=== PATIENT | male | born 1955 | race African-American/Black ===

== ENCOUNTER 2022-06-04 18:55 | Inpatient (IN) | payer MEDICAID, MEDICARE ==
[~2022-06-04] VITALS: Ht 177.8 cm; Wt 69.4 kg
[~2022-06-04 18:55] MED LIST: CAPE500T15 PO
[2022-06-04] MEDS ORDERED: LISI20TA30 PO (19:45)
[2022-06-04] MEDS ORDERED: HYDR-3972 PO (19:45)
[2022-06-04] MEDS ORDERED: AMLO10TA59 PO (19:45)
[2022-06-04] MEDS ORDERED: GUAI-671 PO (19:45)
[2022-06-04] MEDS ORDERED: TAMS-3 PO (19:45)
[2022-06-04] MEDS ORDERED: DONE5TAB34 PO (19:45)
[2022-06-04] MEDS ORDERED: TRAZ-182 PO (19:45)
[2022-06-04] MEDS ORDERED: FINA5TAB11 PO (19:45)
[2022-06-04] MEDS ORDERED: HALO100A2 IM (19:45)
[2022-06-04] MEDS ORDERED: CLON0.1T PO (19:45)
[2022-06-04] MEDS ORDERED: ONDA-104 PO (19:45)
[2022-06-04] MEDS ORDERED: LORA-259 PO (19:45)
--- NOTE | 2022-06-04 19:50 | NUR ---
PT taken down for CT.
[2022-06-04 19:54] LABS: HEMATOCRIT 35.9 % (36.7-47.1); MEAN CORPUSCULAR HEMOGLOBIN 27.9 uug (23.8-33.4); PLATELET COUNT (AUTO) 135 K/uL (152-348)
[2022-06-04 20:12] LABS: ALANINE AMINOTRANSFERASE 21 U/L (16-63); ALKALINE PHOSPHATASE 68 U/L (50-136); ASPARTATE AMINOTRANSFERASE 29 U/L (15-37); BILIRUBIN,DIRECT 0.1 mg/dL (0.0-0.2); BILIRUBIN,TOTAL 0.4 mg/dL (0.2-1.0); CARBON DIOXIDE 32 mmol/L (21-32); CHLORIDE 108 mmol/L (98-107); GLUCOSE 133 mg/dL (74-106); POTASSIUM 4.2 mmol/L (3.5-5.1); TOTAL PROTEIN, SERUM 7.6 g/dL (6.4-8.2); UREA NITROGEN, BLOOD 22 mg/dL (7-18)
--- NOTE | 2022-06-04 21:00 | NUR ---
Unable to perform In in Out cath d/t strong resistence. Dr. Tapia notified.
[2022-06-04 21:51] LABS: EOSINOPHILS % (MANUAL) 3 % (0-8); LYMPHOCYTES % (MANUAL) 23 % (20-40); MONOCYTES % (MANUAL) 22 % (2-10); NEUTROPHILS % (MANUAL) 52 % (42-75)
--- NOTE | 2022-06-04 22:11 | NUR ---
Meagan cleaning performed (diaper only saturated in urine).
[2022-06-04 22:43] LABS: THYROID STIMULATING HORMONE 2.726 mIU/mL (0.358-3.740)
[2022-06-04] MEDS ORDERED: LACTULOSE 20 G/30 ML LIQUID UDC PO ONE (22:45)
--- NOTE | 2022-06-04 22:50 | NUR ---
Spoke to daughterRachel. Her phone # is Please update her on pt's status if anything changes.
--- NOTE | 2022-06-04 23:00 | NUR ---
Art from Crisis Team contacted for psych eval.
--- NOTE | 2022-06-04 23:05 | NUR ---
I was instructed by ER Physician not to place a condom cath on pt and to wait for crisis team to perform their evaluation.
[2022-06-04] MEDS ORDERED: LACTULOSE 20 G/30 ML LIQUID UDC ONE (23:25)
--- NOTE | 2022-06-05 00:05 | NUR ---
Meagan cleaning performed.
--- NOTE | 2022-06-05 00:14 | NUR ---
Art has arrived.
--- NOTE | 2022-06-05 02:07 | NUR ---
Called for MHU bed, given rm 145 b, and gave report to ALEC Barahona.
--- NOTE | 2022-06-05 02:24 | NUR ---
Meagan cleaning performed.
[2022-06-05] MEDS ORDERED: BLOOD SUGAR DIAGNOSTIC 1 EACH STRIP VI ONE (02:45)
[2022-06-05] MEDS ORDERED: MAGNESIUM HYDROXIDE 30 ML LIQUID UDC PO PRN (02:45)
[2022-06-05] MEDS ORDERED: MAG HYDROX/AL HYDROX/SIMETH 30 ML LIQUID UDC PO PRN (02:45)
--- NOTE | 2022-06-05 02:50 | NUR ---
Pt. admitted to MHU rm 145b, under care of Dr. Rao/Dr. Rios. Belongs List completed ALEC Barahona aware of pt's arrival to unit.
[2022-06-05 03:14] VITALS: BP 158/82
[2022-06-05] MEDS: LORAZEPAM 1 MG TABLET PO PRN ×2 (03:25→19:57)
--- NOTE | 2022-06-05 03:59 | NUR ---
GPS: Admitted to unit earlier a 67 yr.old male under the care of /. Pt.is on a 72 hour hold for GD. Pt.is confused and agitated at his board and care and unable to provide food,residential and clothing ,per hold. Pt.is anxious,disorganized and has poor insight and impaired judgment. Unable to answer questions during admission due to confusion. Pt's rights booklet/advisement placed on bedside table. Unit rules explained. Fall precautions initiated. Ativan 1mg PO given for anxiety.Will monitor effectiveness. Re-directed and re-assured prn.
--- NOTE | 2022-06-05 06:03 | NUR ---
SPOKE WITH RUFINO RN FROM [facility]. HE STATED THAT THE NEW NUMBER FOR HIS FACILITY IS [phone] AND HE CAN ALSO BE REACHED AT [phone] FOR ANY QUESTIONS OR THAT WE CAN ALSO CALL PATIENT'S DAUGHTER JACK, WHO SHE IS THE DECISION MAKER FOR HER FATHER. HE ALSO STARTED THAT HIS CANCER MEDICATION: CAPECITABINE 500MG IS TO BE RESTARTED ON 06/12/22 TO 06/25/22. HE STATED THAT PATIENT MAY NOT BE ABLE TO RETURN TO THIS FACILITY HE MAY NEED A HIGH LEVEL OF CARE. HE ALSO STATED THAT HE WILL CHECK PATIENT'S RECORDS TO FIND OUT HIS IMMUNIZATION STATUS AND WILL CALL BACK AND OBTAINED.
[2022-06-05 07:30] VITALS: BP 158/90
[2022-06-05] MEDS: HALOPERIDOL 5 MG TABLET PO SCH ×2 (12:56→17:34)
[2022-06-05] MEDS: GABAPENTIN 100 MG CAPSULE PO SCH ×2 (12:56→17:34)
--- NOTE | 2022-06-05 15:52 | NUR ---
CLOTON Initial Discharge Note: Pt currently resides at [facility] located at [address] [place], [place] [id number]. No contact number at this time. COLTON will continue to locate contact information to discuss pt's return to the assisted living. COLTON spoke with pt's daughter/DPOA, Rachel ([phone]) who stated she would like pt to return to the assisted living. Rachel, however stated that if the psychiatrist, recommends a higher level of care, she would like to further discuss as she is aware of pt's dementia. COLTON will continue to work with pt, family and MD to ensure a safe and proper discharge plan.
--- NOTE | 2022-06-05 15:53 | NUR ---
COLTON Family/DPOA Contact: COLTON spoke with pt's daughter/DPOA, Rachel ([phone]) who stated she would like pt to return to the assisted living. Rachel, however stated that if the psychiatrist, recommends a higher level of care, she would like to further discuss as she is aware of pt's dementia. COLTON will continue to update Rachel. Rachel was grateful for the call.
--- NOTE | 2022-06-05 15:56 | NUR ---
Firearms Report: Ammonia Distiller completed and submitted a [employer] firearms report for 5150 grave disability certifications. A copy of report has been placed in patient chart.
[2022-06-05 16:00] VITALS: BP 127/75
--- NOTE | 2022-06-05 16:50 | NUR ---
Patient is cooperative, quiet, calm, confused, disoriented, disorganized, compliant with medications. Patient is A/O X 1 -2 to person. Patient is partially blind and only can see shades. Patient has colostomy bag, intact. Relaity orientation provided. Fall and safety precautions implemented.
[2022-06-05] MEDS ORDERED: CLONIDINE HCL 0.1 MG TABLET PO PRN (18:15)
[2022-06-05] MEDS: ACETAMINOPHEN 325 MG TABLET PO PRN (19:58)
[2022-06-05] MEDS: TAMSULOSIN HCL 0.4 MG CAP.SR.24H PO SCH (20:26)
[2022-06-05] MEDS: DONEPEZIL 5 MG TABLET PO SCH (20:26)
[2022-06-05 21:37] VITALS: BP 168/84
[2022-06-05] MEDS: TEMAZEPAM 7.5 MG CAPSULE PO PRN (22:23)
--- NOTE | 2022-06-06 02:32 | NUR ---
Received patient at the start of the shift trying to climb out of bed. Very anxious and demanding. Shouting commands at the staff. The patient was helped to the Kita chair at that time. This patient is confused and forgets that he has a colostomy bag and constantly shouts " I need to shit ". He does not remember that he is in the hospital , despite frequent reorientation. The patient has poor vision and needs assistance with ADL, eating , drinking and taking medications. PRN medications were given with little to no effect. The patient was put back to bed ,but has been periodically been yelling out. Safety Stratiges are in place at this time. Continuing to monitor for aggressive behavior and minimizing unit disruption during the night.
[2022-06-06] MEDS: LORAZEPAM 1 MG TABLET PO PRN ×2 (04:22→20:23)
[2022-06-06] MEDS: ACETAMINOPHEN 325 MG TABLET PO PRN (04:22)
[2022-06-06 08:01] LABS: MEAN CORPUSCULAR HEMOGLOBIN 27.6 uug (23.8-33.4); MEAN CORPUSCULAR VOLUME 84.1 fL (73.0-96.2); PLATELET COUNT (AUTO) 146 K/uL (152-348)
[2022-06-06] MEDS: HALOPERIDOL 5 MG TABLET PO SCH ×3 (08:03→16:44)
[2022-06-06] MEDS: LISINOPRIL 20 MG TABLET PO SCH (08:03)
[2022-06-06] MEDS: GABAPENTIN 100 MG CAPSULE PO SCH ×3 (08:03→16:44)
[2022-06-06] MEDS: AMLODIPINE 10 MG TABLET PO SCH (08:03)
[2022-06-06] MEDS: FINASTERIDE 5 MG TABLET PO SCH (08:03)
[2022-06-06 08:04] VITALS: BP 128/78
[2022-06-06 08:24] LABS: THYROID STIMULATING HORMONE 3.828 mIU/mL (0.358-3.740)
[2022-06-06 08:27] LABS: MAGNESIUM 2.2 mg/dL (1.8-2.4); PHOSPHOROUS 3.4 mg/dL (2.5-4.9); POTASSIUM 3.5 mmol/L (3.5-5.1)
[2022-06-06 09:26] LABS: NEUTROPHILS % (MANUAL) 0 % (42-75)
[2022-06-06 14:35] LABS: *RHEUMATOID FACTOR SCREEN NEGATIVE (NEGATIVE)
[2022-06-06 16:26] VITALS: BP 90/59
[2022-06-06] MEDS: TAMSULOSIN HCL 0.4 MG CAP.SR.24H PO SCH (20:23)
[2022-06-06] MEDS: DONEPEZIL 5 MG TABLET PO SCH (20:23)
[2022-06-06 20:31] VITALS: BP 113/64
[2022-06-06] MEDS: TEMAZEPAM 7.5 MG CAPSULE PO PRN (21:55)
[2022-06-07] MEDS: LORAZEPAM 1 MG TABLET PO PRN ×3 (05:23→23:08)
--- NOTE | 2022-06-07 05:24 | NUR ---
GPS: Pt.slept poorly last night. He was anxious,restless,yelling and frequently trying to get out of bed for no reason. Confused,forgetful and disorganized. Poor insight to present situation. Pt.is at high risk for falls due to poor safety awareness.Constant re-assurance and re-direction provided. Anxiety/insomnia meds.given with little to no effect. Pt.was kept NPO after midnight as ordered. Incontinence care provided. Needs attended. Ativan 1mg PO just given now for increase anxiety. Will continue to monitor. Denies pain at this time.
[2022-06-07 07:51] LABS: HEMATOCRIT 36.4 % (36.7-47.1); MEAN CORPUSCULAR HEMOGLOBIN 27.3 uug (23.8-33.4); PLATELET COUNT (AUTO) 150 K/uL (152-348)
[2022-06-07 07:57] VITALS: BP 118/66
[2022-06-07 08:11] LABS: MAGNESIUM 2.3 mg/dL (1.8-2.4); PHOSPHOROUS 3.8 mg/dL (2.5-4.9); POTASSIUM 3.7 mmol/L (3.5-5.1)
[2022-06-07] MEDS: AMLODIPINE 10 MG TABLET PO SCH (09:13)
[2022-06-07] MEDS: LISINOPRIL 20 MG TABLET PO SCH (09:13)
[2022-06-07] MEDS: FINASTERIDE 5 MG TABLET PO SCH (09:13)
[2022-06-07] MEDS: HALOPERIDOL 5 MG TABLET PO SCH ×4 (09:14→20:52)
[2022-06-07] MEDS: GABAPENTIN 100 MG CAPSULE PO SCH ×3 (09:14→17:26)
[2022-06-07 10:12] LABS: LYMPHOCYTES % (MANUAL) 31 % (20-40); MONOCYTES % (MANUAL) 17 % (2-10); NEUTROPHILS % (MANUAL) 52 % (42-75)
[2022-06-07] MEDS ORDERED: levETIRAcetam 500 MG TABLET PO ONE (10:30)
--- NOTE | 2022-06-07 10:40 | NUR ---
Follow up called to patient's daughter Rachel @[phone] for Chemo. medication (Capecitabine) per patient's daughter she unable to shredder picker the medication now she will try to contact [facility].
[2022-06-07 12:06] LABS: *IMMUNOGLOBULIN G, SERUM 1564 mg/dL (603-1613); IMMUNOGLOBULIN M, SERUM 107 mg/dL (20-172)
[2022-06-07] MEDS: ACETAMINOPHEN 325 MG TABLET PO PRN ×2 (12:22→23:08)
[2022-06-07 16:40] VITALS: BP 117/60
[2022-06-07 20:07] VITALS: BP 111/59
[2022-06-07] MEDS: FERROUS SULFATE 325 MG TABEC PO SCH (20:52)
[2022-06-07] MEDS: TAMSULOSIN HCL 0.4 MG CAP.SR.24H PO SCH (20:52)
[2022-06-07] MEDS: DONEPEZIL 5 MG TABLET PO SCH (20:52)
[2022-06-08] MEDS: GUAIFENESIN/DEXTROMETHORPHAN 5 ML UDC PO PRN (05:55)
[2022-06-08] MEDS: ACETAMINOPHEN 325 MG TABLET PO PRN ×2 (05:55→21:02)
[2022-06-08] MEDS: LORAZEPAM 1 MG TABLET PO PRN ×3 (05:55→21:01)
--- NOTE | 2022-06-08 06:20 | NUR ---
TEXT DR. HWANG FOR MRI APPROVAL.
[2022-06-08 08:10] VITALS: BP 93/56
[2022-06-08 08:27] LABS: HEMATOCRIT 33.2 % (36.7-47.1); PLATELET COUNT (AUTO) 120 K/uL (152-348)
[2022-06-08] MEDS: GABAPENTIN 100 MG CAPSULE PO SCH ×3 (08:54→17:27)
[2022-06-08] MEDS: FINASTERIDE 5 MG TABLET PO SCH (08:54)
[2022-06-08] MEDS: HALOPERIDOL 5 MG TABLET PO SCH ×4 (08:54→21:01)
[2022-06-08] MEDS: FERROUS SULFATE 325 MG TABEC PO SCH ×2 (08:55→21:01)
[2022-06-08] MEDS: AMLODIPINE 10 MG TABLET PO SCH (08:56)
[2022-06-08] MEDS: LISINOPRIL 20 MG TABLET PO SCH (08:56)
[2022-06-08] MEDS: GLUCERNA SHAKE 237 ML CAN PO SCH (08:57)
[2022-06-08 09:06] LABS: *ANTI-SCLERODERMA-70 AB <0.2 AI (0.0-0.9); *SJOGREN'S ANTI-SS-B <0.2 AI (0.0-0.9); *SMITH ANTIBODIES <0.2 AI (0.0-0.9); ANTI-DNA(DS) AB, QN 1 IU/mL (0-9)
[2022-06-08 10:06] LABS: *SJOGREN'S ANTI-SS-A <0.2 AI (0.0-0.9)
[2022-06-08] MEDS: DIVALPROEX 250 MG TABLET.DR PO SCH ×2 (12:53→17:27)
[2022-06-08 14:52] LABS: NEUTROPHILS % (MANUAL) 0 % (42-75)
--- NOTE | 2022-06-08 15:46 | NUR ---
MRI schedule tomorrow at 10 am, ambulance arranged mixing picker tender time @ 9AM , supervisor rocket propellant plant Mayelin notified. MRI consent given by daughter over the phone .
--- NOTE | 2022-06-08 15:52 | NUR ---
COLTON Family/DPOA Contact: COLTON spoke with pt's daughter/DPOA, Rachel ([phone]) who provided this SW with pt's assisted living loom fixer helper, Alvaro's contact information ([phone]). Rachel stated she would like to discharge the pt to a dementia care longterm facility upon discharge if pt cannot return to the assisted living. Rachel requested facilities in [facility]. COLTON stated she will work with the psychiatrist to ensure a safe and proper discharge plan for the pt.
--- NOTE | 2022-06-08 15:58 | NUR ---
SW Discharge Update: SW contacted pt's assisted living class 1 owner operator, Alvaro ([phone]) called [facility] located at [address] [place] [address] and left a voicemail for a call back. Pt's daughter, Rachel provided the information to the SW when this health technical writer informed Rachel the facility has not been answering.
--- NOTE | 2022-06-08 16:09 | NUR ---
COLTON Discharge Update: COLTON spoke with pt's assisted living lpn rn, Alvaro ([phone]) called [facility] located at [address] [place] [address] who stated pt cannot return to their assisted living because they are not a locked unit. Alvaro stated pt is an elopement risk. Alvaro stated he will send the pt's belongings wherever the pt discharges to from [place]. COLTON stated this typewriter tester will inform Rachel.
[2022-06-08 16:10] VITALS: BP 111/60
--- NOTE | 2022-06-08 16:14 | NUR ---
Received Capecitabine ( Chemo.medication) delivery from patient's assisted living ,sent to our pharmacy.
[2022-06-08 19:50] VITALS: BP 129/59
[2022-06-08] MEDS ORDERED: levETIRAcetam 500 MG TABLET PO SCH (21:00)
[2022-06-08] MEDS: DONEPEZIL 5 MG TABLET PO SCH (21:01)
[2022-06-08] MEDS: TAMSULOSIN HCL 0.4 MG CAP.SR.24H PO SCH (21:01)
[2022-06-08] MEDS: TEMAZEPAM 7.5 MG CAPSULE PO PRN (22:25)
[2022-06-09 03:07] LABS: HEPATITIS B SURFACE AG Negative (Negative)
[2022-06-09 05:06] LABS: A/G RATIO 0.9 (0.7-1.7); ALBUMIN 3.5 g/dL (2.9-4.4); ALPHA-1-GLOBULIN 0.3 g/dL (0.0-0.4); ALPHA-2-GLOBULIN 0.8 g/dL (0.4-1.0); BETA GLOBULIN 1.3 g/dL (0.7-1.3); GAMMA GLOBULIN 1.5 g/dL (0.4-1.8); GLOBULIN, TOTAL 3.9 g/dL (2.2-3.9); M-SPIKE Not Observed g/dL (Not Observed)
[2022-06-09] MEDS: LORAZEPAM 1 MG TABLET PO PRN ×3 (07:25→21:20)
[2022-06-09] MEDS: ACETAMINOPHEN 325 MG TABLET PO PRN ×3 (07:26→22:31)
[2022-06-09 08:00] VITALS: BP 117/61
[2022-06-09] MEDS: HALOPERIDOL 5 MG TABLET PO SCH ×4 (08:24→21:20)
[2022-06-09] MEDS: FINASTERIDE 5 MG TABLET PO SCH (08:24)
[2022-06-09] MEDS: DIVALPROEX 250 MG TABLET.DR PO SCH ×3 (08:24→17:10)
[2022-06-09] MEDS: FERROUS SULFATE 325 MG TABEC PO SCH ×2 (08:28→21:20)
[2022-06-09] MEDS: GABAPENTIN 100 MG CAPSULE PO SCH ×3 (08:28→17:10)
[2022-06-09] MEDS: AMLODIPINE 10 MG TABLET PO SCH (08:29)
[2022-06-09] MEDS: LISINOPRIL 20 MG TABLET PO SCH (08:30)
[2022-06-09] MEDS: GLUCERNA SHAKE 237 ML CAN PO SCH (08:30)
[2022-06-09] MEDS ORDERED: GADOTERATE MEGLUMINE 10 MMOL/20 ML VIAL IV ONE (12:41)
--- NOTE | 2022-06-09 15:27 | NUR ---
Received patient awake in the hallway. Patient is A/O X 2 to person. Patient is cooperative with nursing care, compliant with medications, confused and disoriented at times, anxious, labile. Patient is given Ativan 1 mg at 13:49, effective. Patient is given Tylenol 650 mg for lower back pain at 13:50, effective. Patient went to [place] [facility] for MRI at 10:00 am, exam was done. Requires more than minimal assistance with ADL. Colostomy bag is changed or empty in every shift. Reassurance given. Fall and safety precautions implemented.
[2022-06-09 16:05] VITALS: BP 114/48
[2022-06-09 20:02] VITALS: BP 119/58
[2022-06-09] MEDS: TAMSULOSIN HCL 0.4 MG CAP.SR.24H PO SCH (21:20)
[2022-06-09] MEDS: DONEPEZIL 5 MG TABLET PO SCH (21:20)
[2022-06-09] MEDS: TEMAZEPAM 7.5 MG CAPSULE PO PRN (22:31)
[2022-06-10] MEDS: GUAIFENESIN/DEXTROMETHORPHAN 5 ML UDC PO PRN ×2 (02:23→16:29)
--- NOTE | 2022-06-10 02:44 | NUR ---
Pt presents with intermittent cough. At times pt is able to expectorate yellow phlegm. Guaifenesin given around 0220 hours. Mediation was effective. Will continue to monitor.
[2022-06-10 07:30] VITALS: BP 112/59
[2022-06-10 07:41] LABS: HEMATOCRIT 35.5 % (36.7-47.1); MEAN CORPUSCULAR HEMOGLOBIN 27.7 uug (23.8-33.4); MEAN CORPUSCULAR VOLUME 86.7 fL (73.0-96.2); PLATELET COUNT (AUTO) 152 K/uL (152-348)
[2022-06-10 08:28] LABS: NEUTROPHILS % (MANUAL) 0 % (42-75)
[2022-06-10] MEDS: GABAPENTIN 100 MG CAPSULE PO SCH ×3 (08:31→16:26)
[2022-06-10] MEDS: DIVALPROEX 250 MG TABLET.DR PO SCH ×3 (08:32→16:26)
[2022-06-10] MEDS: HALOPERIDOL 5 MG TABLET PO SCH ×4 (08:32→20:18)
[2022-06-10] MEDS: FERROUS SULFATE 325 MG TABEC PO SCH ×2 (08:32→20:18)
[2022-06-10] MEDS: FINASTERIDE 5 MG TABLET PO SCH (08:32)
[2022-06-10] MEDS: GLUCERNA SHAKE 237 ML CAN PO SCH (08:33)
[2022-06-10] MEDS: AMLODIPINE 10 MG TABLET PO SCH (08:34)
[2022-06-10] MEDS: LISINOPRIL 20 MG TABLET PO SCH (08:36)
--- NOTE | 2022-06-10 15:03 | NUR ---
Received patient awake in the hallway. Patient is A/O X 1- 2 to person. Patient is compliant with medications, confused, disoriented, disorganized, anxious. Patient is having a productive coughing, Purler was informed and prescribed Guaifenesin 600 mg PO q12hr PRN, Procalcitonin, and Covid test. Patient requires total care. Colostomy bag emptied in this morning. Reality orientation provided. Fall and safety precautions implemented.
[2022-06-10 16:00] VITALS: BP 113/63
[2022-06-10] MEDS: GUAIFENESIN LA 600 MG TABLET.SA PO PRN (16:26)
--- NOTE | 2022-06-10 18:48 | NUR ---
Patient had court hearing today, and cash management clerk gave 14 Day probable cause for GD only.
[2022-06-10 20:18] VITALS: BP 125/58
[2022-06-10] MEDS: TAMSULOSIN HCL 0.4 MG CAP.SR.24H PO SCH (20:18)
[2022-06-10] MEDS: DONEPEZIL 5 MG TABLET PO SCH (20:18)
[2022-06-10] MEDS: TEMAZEPAM 7.5 MG CAPSULE PO PRN (22:53)
[2022-06-11] MEDS: GUAIFENESIN/DEXTROMETHORPHAN 5 ML UDC PO PRN ×2 (06:12→20:22)
[2022-06-11] MEDS: GUAIFENESIN LA 600 MG TABLET.SA PO PRN (06:12)
--- NOTE | 2022-06-11 06:35 | NUR ---
GPS: Pt.slept for 6 hrs. last night. Remains confused,disoriented and disorganized. Has productive cough. Cough syrup and Mucinex given as ordered. Remains afebrile. Denies SOB. Re-directed prn. No combative behavior noted.
[2022-06-11 07:30] VITALS: BP 106/59
[2022-06-11] MEDS: AMLODIPINE 10 MG TABLET PO SCH (09:00)
[2022-06-11] MEDS: LISINOPRIL 20 MG TABLET PO SCH (09:00)
[2022-06-11] MEDS: HALOPERIDOL 5 MG TABLET PO SCH ×4 (09:04→20:19)
[2022-06-11] MEDS: FERROUS SULFATE 325 MG TABEC PO SCH ×2 (09:05→20:19)
[2022-06-11] MEDS: FINASTERIDE 5 MG TABLET PO SCH (09:05)
[2022-06-11] MEDS: DIVALPROEX 250 MG TABLET.DR PO SCH ×3 (09:05→16:41)
[2022-06-11] MEDS: GABAPENTIN 100 MG CAPSULE PO SCH ×3 (09:05→16:41)
[2022-06-11] MEDS: GLUCERNA SHAKE 237 ML CAN PO SCH (09:06)
--- NOTE | 2022-06-11 11:08 | NUR ---
SNF Referral: SW faxed patient's referral packet including: History and Physical, Consultation, Progress Notes, Medication List and Labs to the following facilities for review and possible group home placement: [facility] located at [address] [address] ([phone]). COLTON spoke with Collin hidalgo.
--- NOTE | 2022-06-11 11:22 | NUR ---
Pharmacy informed that patient restarts Cancer treatment tomorrow 06/12/22 until 06/25/22, 14 days of treatment, but Alvaro MICHAEL ([phone]) from [facility] brought 16 pills which covers 2 days supply only. Patient takes 4 pills of 500 mg BID, patient's daughter Rachel ([phone]) was informed and will verify if she has any pills left at home. Psychiatrist requested Chemo consult from Dr. Bry Armas STAT.
--- NOTE | 2022-06-11 11:37 | NUR ---
COLTON Family/DPOA Contact: COLTON spoke with pt's daughter/DPOA, Rachel ([phone]) and informed her that the Pharmacy informed nursing that the pt's Cancer treatment Capecitabine 500mg restarts tomorrow 06/12/22 until 06/25/22, 14 days of treatment. Rachel informed this marketing underwriter that Alvaro MICHAEL ([phone]) from [facility] brought the medication. The pharmacy informed nursing that there is only 16 pills which covers 2 days supply only. Patient takes 4 pills of 500 mg BID. COLTON informed pt's daughter Rachel ([phone]) who stated she will confirm if she has additional pills of Capecitabine 500mg at home t provide the hospital with. Psychiatrist, Dr. Rao requested Chemo consult from Dr. Bry Armas STAT. Rachel was grateful for the update and stated she will contact this marketing underwriter to inform her on the discharge transportation details and medication.
--- NOTE | 2022-06-11 14:47 | NUR ---
COLTON Family/DPOA Contact: COLTON spoke with pt's daughter/DPOA, Rachel ([phone]) and informed her that the pt is accepted to [facility] in [place] per request. Rachel stated that if the facility is not able to provide transportation, she will help with transportation. COLTON stated that pt has an accepting facility locally as well for a safe discharge via ambulance as a temporary and alternative option. Rachel stated she will help with transportation as she wants to move forward with [facility].
--- NOTE | 2022-06-11 15:15 | NUR ---
Received patient sleeping in his room. A/O X 1 to person. Patient is confused, disoriented, disorganized, forgetful, cooperative with nursing care, and compliant with medications. Patient requires total care. Reassurance given. Fall and safety precautions implemented.
[2022-06-11 16:00] VITALS: BP 97/61
[2022-06-11 20:12] VITALS: BP 103/57
[2022-06-11] MEDS: DONEPEZIL 5 MG TABLET PO SCH (20:19)
[2022-06-11] MEDS: TAMSULOSIN HCL 0.4 MG CAP.SR.24H PO SCH (20:19)
[2022-06-11] MEDS: TEMAZEPAM 7.5 MG CAPSULE PO PRN (21:41)
[2022-06-12] MEDS: LORAZEPAM 1 MG TABLET PO PRN ×2 (00:04→08:46)
[2022-06-12 07:30] VITALS: BP 104/61
[2022-06-12] MEDS: FERROUS SULFATE 325 MG TABEC PO SCH ×2 (08:45→20:19)
[2022-06-12] MEDS: HALOPERIDOL 5 MG TABLET PO SCH ×4 (08:46→20:19)
[2022-06-12] MEDS: GABAPENTIN 100 MG CAPSULE PO SCH ×3 (08:46→17:21)
[2022-06-12] MEDS: FINASTERIDE 5 MG TABLET PO SCH (08:46)
[2022-06-12] MEDS: DIVALPROEX 250 MG TABLET.DR PO SCH ×3 (08:46→17:20)
[2022-06-12] MEDS: GLUCERNA SHAKE 237 ML CAN PO SCH (08:47)
[2022-06-12] MEDS: LISINOPRIL 20 MG TABLET PO SCH (08:49)
[2022-06-12] MEDS: AMLODIPINE 10 MG TABLET PO SCH (08:49)
[2022-06-12] MEDS ORDERED: CAPECITABINE 2000 MG PO SCH (09:00)
--- NOTE | 2022-06-12 14:23 | NUR ---
Discharge Update: Per conversation with pt's daughter, Rachel, pt will temporarily discharge to [facility] [phone]) [address] [place] [address] where pt is accepted to upon discharge. Pt will transfer from [facility] to [facility] in [place] in a couple weeks where pt is accepted to by Rachel's transportation for continuation of care. Rachel is aware and agreeable with the discharge plan.
[2022-06-12 16:00] VITALS: BP 133/71
[2022-06-12] MEDS: DONEPEZIL 5 MG TABLET PO SCH (20:19)
[2022-06-12] MEDS: GUAIFENESIN/DEXTROMETHORPHAN 5 ML UDC PO PRN (20:21)
[2022-06-12] MEDS: TAMSULOSIN HCL 0.4 MG CAP.SR.24H PO SCH (20:21)
[2022-06-12] MEDS: REMEDY ESSENTIAL ZINC PASTE 113 GM TOP PRN (20:47)
[2022-06-12 21:06] VITALS: BP 122/50
[2022-06-12] MEDS: TEMAZEPAM 7.5 MG CAPSULE PO PRN (21:39)
[2022-06-13] MEDS: FINASTERIDE 5 MG TABLET PO SCH (08:23)
[2022-06-13] MEDS: GABAPENTIN 100 MG CAPSULE PO SCH ×3 (08:23→16:56)
[2022-06-13] MEDS: DIVALPROEX 250 MG TABLET.DR PO SCH ×3 (08:24→16:55)
[2022-06-13] MEDS: HALOPERIDOL 5 MG TABLET PO SCH ×3 (08:24→20:27)
[2022-06-13] MEDS: AMLODIPINE 10 MG TABLET PO SCH (08:25)
[2022-06-13] MEDS: LISINOPRIL 20 MG TABLET PO SCH (08:25)
[2022-06-13] MEDS: GLUCERNA SHAKE 237 ML CAN PO SCH (08:28)
[2022-06-13] MEDS: FERROUS SULFATE 325 MG TABEC PO SCH ×2 (08:28→20:27)
--- NOTE | 2022-06-13 15:19 | NUR ---
Patient is alert and oriented x1 to himself Med.compliant Confused,disoriented. Reality re-orientation provided prn. Fall precautions observed. Denies pain or discomfort when asked. Colostomy care done prn.
[2022-06-13 16:09] VITALS: BP 141/59
[2022-06-13 20:25] VITALS: BP 112/60
[2022-06-13] MEDS: DONEPEZIL 5 MG TABLET PO SCH (20:27)
[2022-06-13] MEDS: LORAZEPAM 0.5 MG TABLET PO PRN (20:27)
[2022-06-13] MEDS: TAMSULOSIN HCL 0.4 MG CAP.SR.24H PO SCH (20:27)
[2022-06-14] MEDS: GUAIFENESIN/DEXTROMETHORPHAN 5 ML UDC PO PRN (01:24)
[2022-06-14] MEDS: TEMAZEPAM 7.5 MG CAPSULE PO PRN (01:25)
--- NOTE | 2022-06-14 04:55 | NUR ---
Pt is unsteady with gait and balance. Fall risk. Emptied colostomy bag 3 times this shift. Cleansed and changed diapers x3 this shift. Liquid stool was black to dark brown in color. Pt has occasional productive cough with white to yellow frothy sputum, with minimal to moderate amount. Gave Guaifenesin. Will continue to monitor.
[2022-06-14 08:21] VITALS: BP 98/59
[2022-06-14] MEDS: LISINOPRIL 20 MG TABLET PO SCH (09:00)
[2022-06-14] MEDS: FERROUS SULFATE 325 MG TABEC PO SCH ×2 (09:21→20:54)
[2022-06-14] MEDS: DIVALPROEX 250 MG TABLET.DR PO SCH ×3 (09:21→16:55)
[2022-06-14] MEDS: FINASTERIDE 5 MG TABLET PO SCH (09:21)
[2022-06-14] MEDS: GABAPENTIN 100 MG CAPSULE PO SCH ×3 (09:21→16:55)
[2022-06-14] MEDS: HALOPERIDOL 5 MG TABLET PO SCH ×3 (09:22→20:54)
[2022-06-14] MEDS: AMLODIPINE 10 MG TABLET PO SCH (09:22)
[2022-06-14] MEDS: GLUCERNA SHAKE 237 ML CAN PO SCH (09:23)
--- NOTE | 2022-06-14 14:38 | NUR ---
Received patient sleeping in his room. Patient is A/O X 1 -2 to person. Patient is disoriented, forgetful, disorganized, compliant with medications, cooperative with nursing care, following directions. Patient requires total assistance, incontinent, feeder, ambulates with assistance of Physical Therapy. Reality orientation provided. Fall and safety precautions implemented.
[2022-06-14 16:17] VITALS: BP 112/61
[2022-06-14 19:57] VITALS: BP 115/60
[2022-06-14] MEDS: DONEPEZIL 5 MG TABLET PO SCH (20:54)
[2022-06-14] MEDS: ACETAMINOPHEN 325 MG TABLET PO PRN (20:54)
[2022-06-14] MEDS: TAMSULOSIN HCL 0.4 MG CAP.SR.24H PO SCH (20:54)
[2022-06-14] MEDS: LORAZEPAM 0.5 MG TABLET PO PRN (20:54)
[2022-06-15] MEDS: TEMAZEPAM 7.5 MG CAPSULE PO PRN ×2 (00:38→22:54)
[2022-06-15] MEDS: ACETAMINOPHEN 325 MG TABLET PO PRN (02:18)
[2022-06-15] MEDS: GUAIFENESIN/DEXTROMETHORPHAN 5 ML UDC PO PRN ×2 (02:18→22:54)
[2022-06-15] MEDS: LORAZEPAM 0.5 MG TABLET PO PRN (02:19)
--- NOTE | 2022-06-15 04:29 | NUR ---
Emptied pt's colostomy bag x3 times this shift, with the 3rd time being almost completely water, and very little stool. Stool has the obvious black color possibly d/t daily iron supplementation or melena. Stoma still has beefy red coloration. Pt is still overall compliant with POC, yet still experiences AH and VH, disoriented, disorganized, maloderous, and difficult to redirect. Provided prn suctioning d/t intermittent productive cough via [place]. Collected clear to yellow frothy sputum. Pt tolerated procedure well.
--- NOTE | 2022-06-15 06:25 | NUR ---
While initiating oral care in the morning of this shift, this nurse allowed patient to brush his own teeth. Patient performed task well with minimal assistance.
[2022-06-15 07:52] VITALS: BP 135/64
[2022-06-15 08:51] LABS: HEMATOCRIT 35.2 % (36.7-47.1); MEAN CORPUSCULAR HEMOGLOBIN 28.2 uug (23.8-33.4); MEAN CORPUSCULAR VOLUME 85.7 fL (73.0-96.2); PLATELET COUNT (AUTO) 183 K/uL (152-348)
[2022-06-15] MEDS: FERROUS SULFATE 325 MG TABEC PO SCH ×2 (09:13→20:49)
[2022-06-15] MEDS: DIVALPROEX 250 MG TABLET.DR PO SCH ×3 (09:13→17:51)
[2022-06-15] MEDS: FINASTERIDE 5 MG TABLET PO SCH (09:13)
[2022-06-15] MEDS: AMLODIPINE 10 MG TABLET PO SCH (09:14)
[2022-06-15] MEDS: HALOPERIDOL 5 MG TABLET PO SCH ×3 (09:14→20:49)
[2022-06-15] MEDS: LISINOPRIL 20 MG TABLET PO SCH (09:14)
[2022-06-15] MEDS: GABAPENTIN 100 MG CAPSULE PO SCH ×3 (09:15→17:51)
[2022-06-15] MEDS: GLUCERNA SHAKE 237 ML CAN PO SCH (09:15)
[2022-06-15 11:05] LABS: BILIRUBIN,TOTAL 0.6 mg/dL (0.2-1.0); MAGNESIUM 2.1 mg/dL (1.8-2.4); PHOSPHOROUS 3.6 mg/dL (2.5-4.9); POTASSIUM 3.9 mmol/L (3.5-5.1); TOTAL PROTEIN, SERUM 7.9 g/dL (6.4-8.2)
[2022-06-15 16:10] VITALS: BP 106/62
[2022-06-15 16:16] LABS: BAND % (MANUAL) 2 % (0-10); NEUTROPHILS % (MANUAL) 60 % (42-75)
[2022-06-15 16:17] LABS: EOSINOPHILS % (MANUAL) 2 % (0-8); LYMPHOCYTES % (MANUAL) 24 % (20-40); MONOCYTES % (MANUAL) 12 % (2-10)
--- NOTE | 2022-06-15 18:24 | NUR ---
Received patient in hallway he is alert and oriented x1 to himself Med.compliant Confused,disoriented. Reality re-orientation provided prn. Fall precautions observed. Denies pain or discomfort when asked. assisted patient ambulates to restroom Colostomy care done prn.
[2022-06-15 20:14] VITALS: BP 127/72
[2022-06-15] MEDS: DONEPEZIL 5 MG TABLET PO SCH (20:48)
[2022-06-15] MEDS: TAMSULOSIN HCL 0.4 MG CAP.SR.24H PO SCH (20:49)
[2022-06-15] MEDS: REMEDY ESSENTIAL ZINC PASTE 113 GM TOP PRN (21:19)
[2022-06-16 07:29] VITALS: BP 100/69
[2022-06-16] MEDS: DIVALPROEX 250 MG TABLET.DR PO SCH ×3 (08:16→16:31)
[2022-06-16] MEDS: FINASTERIDE 5 MG TABLET PO SCH (08:16)
[2022-06-16] MEDS: HALOPERIDOL 5 MG TABLET PO SCH ×3 (08:17→21:05)
[2022-06-16] MEDS: FERROUS SULFATE 325 MG TABEC PO SCH ×2 (08:17→21:07)
[2022-06-16] MEDS: GLUCERNA SHAKE 237 ML CAN PO SCH (08:18)
[2022-06-16] MEDS: GABAPENTIN 100 MG CAPSULE PO SCH ×3 (08:18→16:33)
[2022-06-16] MEDS: AMLODIPINE 10 MG TABLET PO SCH (08:19)
[2022-06-16] MEDS: LISINOPRIL 20 MG TABLET PO SCH (08:19)
[2022-06-16] MEDS: LORAZEPAM 0.5 MG TABLET PO PRN ×2 (10:50→21:05)
[2022-06-16 11:30] LABS: HEMATOCRIT 37.5 % (36.7-47.1); MEAN CORPUSCULAR HEMOGLOBIN 27.6 uug (23.8-33.4); PLATELET COUNT (AUTO) 212 K/uL (152-348)
[2022-06-16 11:48] LABS: BILIRUBIN,TOTAL 0.6 mg/dL (0.2-1.0); CREATININE 0.9 mg/dL (0.6-1.3); POTASSIUM 3.9 mmol/L (3.5-5.1); TOTAL PROTEIN, SERUM 8.1 g/dL (6.4-8.2)
--- NOTE | 2022-06-16 14:17 | NUR ---
ANJANA Family/DPOA Contact: ANJANA contacted pt's daughter/DPOA, Rachel ([phone]) and left a voicemail informing Rachel of pts' discharge to [facility] ([phone]) [address] [place] [address] via Ambulance transportation on 06/18/22. ANJANA stated [facility] and [facility] in [place] are aware of pt's temporary placement at [facility] prior to pt discharging to [place]. Anjana provided [facility] with [facility] [employer] salesperson, George ([phone]) for discharge assistance.
[2022-06-16 15:45] VITALS: BP 131/70
[2022-06-16] MEDS: AMOXICILLIN-CLAVUL 875-125MG TABLET PO SCH ×2 (16:32→21:05)
[2022-06-16] MEDS: DOXYCYCLINE HYCLATE 100 MG TABLET PO SCH ×2 (16:32→21:06)
--- NOTE | 2022-06-16 17:45 | NUR ---
patient seen by Oncologist LO Frias ,not going to start Chemo. medication will follow up with oncologist within 1 week after discharged.
[2022-06-16 20:56] VITALS: BP 126/69
[2022-06-16] MEDS: TAMSULOSIN HCL 0.4 MG CAP.SR.24H PO SCH (21:05)
[2022-06-16] MEDS: DONEPEZIL 5 MG TABLET PO SCH (21:05)
[2022-06-16] MEDS: GUAIFENESIN/DEXTROMETHORPHAN TAB.SR.12H PO SCH (21:06)
[2022-06-16] MEDS: TEMAZEPAM 7.5 MG CAPSULE PO PRN (23:07)
[2022-06-16] MEDS: ACETAMINOPHEN 325 MG TABLET PO PRN (23:08)
[2022-06-17] MEDS: LORAZEPAM 0.5 MG TABLET PO PRN ×2 (06:44→21:08)
[2022-06-17 07:30] VITALS: BP 155/77
[2022-06-17] MEDS: HALOPERIDOL 5 MG TABLET PO SCH ×3 (08:31→21:09)
[2022-06-17] MEDS: FERROUS SULFATE 325 MG TABEC PO SCH ×2 (08:32→21:09)
[2022-06-17] MEDS: DIVALPROEX 250 MG TABLET.DR PO SCH ×3 (08:32→17:11)
[2022-06-17] MEDS: AMOXICILLIN-CLAVUL 875-125MG TABLET PO SCH ×2 (08:32→21:08)
[2022-06-17] MEDS: GABAPENTIN 100 MG CAPSULE PO SCH ×3 (08:33→17:12)
[2022-06-17] MEDS: GUAIFENESIN/DEXTROMETHORPHAN TAB.SR.12H PO SCH ×2 (08:33→21:09)
[2022-06-17] MEDS: AMLODIPINE 10 MG TABLET PO SCH (08:33)
[2022-06-17] MEDS: DOXYCYCLINE HYCLATE 100 MG TABLET PO SCH ×2 (08:34→21:08)
[2022-06-17] MEDS: FINASTERIDE 5 MG TABLET PO SCH (08:34)
[2022-06-17] MEDS: LISINOPRIL 20 MG TABLET PO SCH (08:34)
[2022-06-17] MEDS: GLUCERNA SHAKE 237 ML CAN PO SCH (08:43)
--- NOTE | 2022-06-17 15:37 | NUR ---
COLTON discharge Update: COLTON contacted pt's daughter/DPOARachel ([phone]) and discussed pt's final discharge plan to [facility] ([phone]) located at [address] [place] [address] via Ambulance transportation on 06/18/22. Nuzhat from [facility] is aware of pt's temporary admission for continuation of care. Nuzhat is aware pt's daughterRachel is transferring the pt [facility] in [place] where pt is accepted per George hidalgo ([phone]). Nuzhat stated to this junior underwriter that she will inform [facility] team of pt's continuation of care plan to [facility] by Rachel's transportation. George stated to this junior underwriter that [facility] will need to contact George prior to pt's transfer from [facility] to [facility]. Nuzhat and Rachel are aware and agreeable with this plan. COLTON informed Rachel that this junior underwriter spoke to Nuzhat at [facility] and George at [facility] in [place] who are aware of the pt's final discharge plan. COLTON provided [facility] with George Ring ([phone]) for continuation of care communication.
[2022-06-17 16:00] VITALS: BP 105/57
--- NOTE | 2022-06-17 19:22 | NUR ---
Pt has been out of bed, and resting in patience-chair. Pt allows care. Pt need assistance with all activities. Pt's colostomy was emptied, site is cleaned. Pt is resting in bed.
[2022-06-17] MEDS: TAMSULOSIN HCL 0.4 MG CAP.SR.24H PO SCH (21:08)
[2022-06-17] MEDS: DONEPEZIL 5 MG TABLET PO SCH (21:08)
[2022-06-17 21:24] VITALS: BP 94/58
[2022-06-18 07:30] VITALS: BP 104/59
--- NOTE | 2022-06-18 09:40 | NUR ---
COLTON Discharge Note: Pt will be discharged to [facility] ([phone]) located at [address] [place] [address] via Ambulance transportation at 11AM. COLTON spoke with Nuzhat hidalgo and Ameena at the facility who states they are ready to accept the patient today. Pt is aware and agreeable with discharge plan. Pts daughter/DPOA, Rachel ([phone]) is aware and agreeable with the discharge plan. Pt is alert and oriented x2, is unable to plan for self-care at this time. However, pt is willing to accept care at SNF. Pt denies any suicidal or homicidal ideation. Pt will follow-up at the facility with Psychiatrist, Dr. Rao ([phone]) and Blast Setter, Katty. Pt presents with calm mood and congruent affect. PHARMACY: [facility] [phone]) [address] [address].
[2022-06-18] MEDS: DIVALPROEX 250 MG TABLET.DR PO SCH (09:45)
[2022-06-18] MEDS: GABAPENTIN 100 MG CAPSULE PO SCH (09:45)
[2022-06-18] MEDS: FINASTERIDE 5 MG TABLET PO SCH (09:45)
[2022-06-18] MEDS: FERROUS SULFATE 325 MG TABEC PO SCH (09:45)
[2022-06-18] MEDS: AMOXICILLIN-CLAVUL 875-125MG TABLET PO SCH (09:46)
[2022-06-18] MEDS: LISINOPRIL 20 MG TABLET PO SCH (09:46)
[2022-06-18] MEDS: DOXYCYCLINE HYCLATE 100 MG TABLET PO SCH (09:46)
[2022-06-18] MEDS: GLUCERNA SHAKE 237 ML CAN PO SCH (09:48)
[2022-06-18] MEDS: GUAIFENESIN/DEXTROMETHORPHAN TAB.SR.12H PO SCH (09:55)
[2022-06-18] MEDS: HALOPERIDOL 5 MG TABLET PO SCH (10:27)
[2022-06-18 11:03] VITALS: BP 134/67
[2022-06-18] MEDS: AMLODIPINE 10 MG TABLET PO SCH (11:03)
--- NOTE | 2022-06-18 11:03 | NUR ---
Gps/Carton Maker- Called [facility], for report, spoked with Jeanine(Nurse) will return call for confirmation on admission at the SNF
[2022-06-18 11:35] LABS: HEMATOCRIT 35.7 % (36.7-47.1); MEAN CORPUSCULAR HEMOGLOBIN 28.2 uug (23.8-33.4); MEAN CORPUSCULAR VOLUME 87.7 fL (73.0-96.2); PLATELET COUNT (AUTO) 185 K/uL (152-348)
--- NOTE | 2022-06-18 11:35 | NUR ---
Gps/Fire Production Operator Called [facility], report was given to Jeanine , coal picker time was arranged at 1130 -1200 pending availability
--- NOTE | 2022-06-18 12:47 | NUR ---
Gps/Career Placement Services Counselor- Discharged to [facility] via ambulance, no belongings noted , except patient's own meds. Patient was well informed of his discharged plan. No sigh of any distress.
[2022-06-18 13:02] LABS: NEUTROPHILS % (MANUAL) 0 % (42-75)
== END 2022-06-18 12:45 | DRG 885 ==
LOC: ER 18:55 → GPS 06-05 01:30
PROVIDERS: ADMIT Psychiatry & Neurology Psychosomatic Medicine; ATTEND Nurse Practitioner Acute Care
DX: F29 Unspecified psychosis not due to a substance or known physiological condition (principal); F01.52 Vascular dementia, unspecified severity, with psychotic disturbance; Z93.3 Colostomy status; G93.41 Metabolic encephalopathy; I62.03 Nontraumatic chronic subdural hemorrhage; E87.1 Hypo-osmolality and hyponatremia; D61.818 Other pancytopenia; E72.20 Disorder of urea cycle metabolism, unspecified; F31.9 Bipolar disorder, unspecified; D69.6 Thrombocytopenia, unspecified; D72.821 Monocytosis (symptomatic); E86.0 Dehydration; I10 Essential (primary) hypertension; Z86.73 Personal history of transient ischemic attack (TIA), and cerebral infarction without residual deficits; F19.90 Other psychoactive substance use, unspecified, uncomplicated; Z85.048 Personal history of other malignant neoplasm of rectum, rectosigmoid junction, and anus; D64.9 Anemia, unspecified; D50.9 Iron deficiency anemia, unspecified; Z20.822 Contact with and (suspected) exposure to COVID-19; J20.9 Acute bronchitis, unspecified
CPT/HCPCS: 36415; 70030-TC; 70450; 70553; 71045; 76700; 82378; 82746; 82784; 83550; 83735; 84100; 84155; 84165; 84443; 84481; 84484; 85025; 86038; 86140; 86334; 86430; 86706; 86803; 87340; 88185; 93005; A9575; C1758; J3490